=== PATIENT | male | born 1955 | race Two or more races ===

== ENCOUNTER 2016-08-11 07:17 | Day surgery (SDC) | payer OTHER ==
[~2016-08-11] VITALS: Ht 174 cm; Wt 150.6 kg
[~2016-08-11 07:17] MED LIST: ALLOPURINOL100 MG PO; ELIQUIS5 MG PO; FLUOXETINE HCL40 MG PO; HUMALOG100 UNIT/1 SC; LANTUS 3 M100 UNITS1 SC; LEVOTHYROXINE50 MCG PO; LYRICA150 MG PO; RIVASTIGMINE1.5 MG PO; TAMSULOSIN HCL0.4 MG PO; VITAMIN D2000 UNIT PO
[2016-08-11 08:21] LABS: POINT-OF-CARE METER ID UU13113696
[2016-08-11 09:49] LABS: METH RESISTANT S AUREUS PCR NEGATIVE (NEGATIVE)
[2016-08-11 09:52] LABS: PROBE CHECK PASS; SPECIMEN PROCESSING CONTROL PASS
== END 2016-08-11 10:16 | disposition home or self-care (01) ==
LOC: CATH 07:17
PROVIDERS: Surgery
PROC: 05HY33Z Insertion of Infusion Device into Upper Vein, Percutaneous Approach (ICD-10-PCS; principal; 2016-08-11)
PROC: B51W1ZZ Fluoroscopy of Dialysis Shunt/Fistula using Low Osmolar Contrast (ICD-10-PCS; principal; 2016-08-11)
PROC: 057Y3ZZ Dilation of Upper Vein, Percutaneous Approach (ICD-10-PCS; principal; 2016-08-11)
DX: T82.858A Stenosis of other vascular prosthetic devices, implants and grafts, initial encounter (principal); Y83.2 Surgical operation with anastomosis, bypass or graft as the cause of abnormal reaction of the patient, or of later complication, without mention of misadventure at the time of the procedure; Z99.2 Dependence on renal dialysis; N18.6 End stage renal disease
CPT/HCPCS: 82948; 87081; 87641; C1725; C1769; C1874; C1894; J1644; J2250; J3010

== ENCOUNTER 2016-08-22 06:11 | Day surgery (SDC) | payer OTHER ==
[~2016-08-22] VITALS: Ht 175.3 cm; Wt 152.7 kg
[2016-08-22 10:05] LABS: HEMATOCRIT 38.7 % (38.0-50.0); MCV 96.8 FL (86-99); PLATELET COUNT 194 K/uL (156-360); RBC DIS.WIDTH-CV 14.3 % (11.8-14.6); RBC DIS.WIDTH-SD 50.6 % (39-53); WHITE BLOOD COUNT 7.2 K/uL (4.1-10.2)
[2016-08-22 10:15] VITALS: BP 170/77
[2016-08-22 10:16] LABS: ANION GAP 14 MEQ/L (2-14); CHLORIDE 101 MEQ/L (99-109); POTASSIUM 4.7 MEQ/L (3.7-5.4); SAMPLE HEMOLYSIS CHECK 0; SAMPLE ICTERIC CHECK 0; SAMPLE LIPEMIA CHECK 0; SODIUM 139 MEQ/L (136-147)
[2016-08-22 10:21] LABS: GFR ESTIMATE (CALCULATED) 10 mL/min/; GLUCOSE 253 mg/dL (70-99); UREA NITROGEN (BUN) 64 mg/dL (9-23)
[2016-08-22 10:46] LABS: METH RESISTANT S AUREUS PCR NEGATIVE (NEGATIVE); PROBE CHECK PASS; SPECIMEN PROCESSING CONTROL PASS
[2016-08-22 16:24] LABS: POINT-OF-CARE METER ID UU13113675
[2016-08-22 16:54] VITALS: BP 172/78
[2016-08-22 17:44] VITALS: BP 134/68
== END 2016-08-22 17:50 | disposition home or self-care (01) ==
LOC: SDC 06:11
PROVIDERS: Surgery
PROC: 03170JD Bypass Right Brachial Artery to Upper Arm Vein with Synthetic Substitute, Open Approach (ICD-10-PCS; principal; 2016-08-22)
DX: E11.22 Type 2 diabetes mellitus with diabetic chronic kidney disease (principal); I12.0 Hypertensive chronic kidney disease with stage 5 chronic kidney disease or end stage renal disease; N18.6 End stage renal disease; M19.90 Unspecified osteoarthritis, unspecified site; I48.91 Unspecified atrial fibrillation; Z99.2 Dependence on renal dialysis
CPT/HCPCS: 80048; 82948; 85027; 87641; 93005; C1768; J1170; J1644; J2250; J2720